=== PATIENT | female | born 1965 | race Caucasian/White ===

== ENCOUNTER → 2016-11-27 | Outpatient (CLI) | payer BC ==
[~2016-11-27] MED LIST: MEDR10TA7 PO
[2016-11-27 10:40] LABS: HEMATOCRIT 37.5 % (35.0-46.0); MEAN CELL VOLUME 88.6 FL (80.0-100.0); MEAN CORPUSCULAR HGB CONC 33.9 % (32.0-36.0); PLATELET COUNT 205 TH/MM3 (150-450); RED BLOOD COUNT 4.24 MIL/MM3 (4.00-5.30); RED CELL DISTRIBUTION WIDTH 13.5 % (11.6-17.2); REVIEW FLAG FINAL; WHITE BLOOD COUNT 9.1 TH/MM3 (4.0-11.0)
--- NOTE | 2016-11-27 13:52 | EKG ---
Date Performed: 11/27/2016 Time Performed: 10:20:53 PTAGE: 51 years EKG: Sinus rhythm NON-SPECIFIC ST/T WAVE CHANGES NO PREVIOUS TRACING DOCTOR: Samson Gomez Interpretating Date/Time 11/27/2016 13:51:26
== END ==
LOC: CPRE 09:51
PROVIDERS: ATTEND Obstetrics & Gynecology
DX: Z01.812 Encounter for preprocedural laboratory examination (principal); Z01.810 Encounter for preprocedural cardiovascular examination; N92.0 Excessive and frequent menstruation with regular cycle
CPT/HCPCS: 36415; 84703; 85027; 93005

== ENCOUNTER 2016-12-04 09:28 | Observation (INO) | payer BC ==
[~2016-12-04] VITALS: Ht 165.1 cm; Wt 69.4 kg
[2016-12-04] MEDS ORDERED: CHLORHEXIDINE GLUCONATE 2 % 1 PACK (2 CLOTHS) TOPICAL PRN (10:00)
[2016-12-04] MEDS ORDERED: POVIDONE IODINE 5% (ANTISEPSIS KIT) 4 APPLICATIONS EACH NARE PRN (10:00)
[2016-12-04] MEDS ORDERED: LACTATED RINGER'S 1000 ML IV PRN (10:00)
[2016-12-04] MEDS ORDERED: SODIUM CHLORID 0.9% 500 ML IV PRN (10:00)
[2016-12-04] MEDS ORDERED: METOPROLOL TARTRATE 25 MG TAB PO PRN (10:00)
[2016-12-04] MEDS ORDERED: INSULIN HUMAN REGULAR 1,000 UNITS/10 ML VIAL SQ PRN (10:00)
[2016-12-04] MEDS ORDERED: ONDANSETRON HCL 4 MG/2 ML VIAL IV PUSH SCH (10:00)
[2016-12-04] MEDS ORDERED: MIDAZOLAM HCL 2 MG/2 ML VIAL IV SCH (10:00)
[2016-12-04 10:03] VITALS: BP 128/63; PULSE 86; RESP 20; TEMP 98.2; O2SAT 98
[2016-12-04] MEDS: ceFAZolin 1,000 MG/NS 100 ML IV SCH ×4 (11:12→11:15)
[2016-12-04] MEDS ORDERED: LACTATED RINGER'S 1000 ML INJ 1,000 ML IV ONE (12:00)
[2016-12-04] MEDS ORDERED: NEOSTIGMINE 3 MG/3 ML SYR IV ONE (12:00)
[2016-12-04] MEDS ORDERED: ONDANSETRON HCL 4 MG/2 ML VIAL IV PUSH ONE (12:00)
[2016-12-04] MEDS ORDERED: ePHEDrine/NS 25 MG/5 ML SYR IV ONE (12:00)
[2016-12-04] MEDS ORDERED: KETOROLAC TROMETHAMINE 30 MG/ML (IVP) VIAL IV PUSH ONE (12:00)
[2016-12-04] MEDS ORDERED: PHENYLEPH/NS 1000 MCG/10 ML SYR IV ONE (12:00)
[2016-12-04] MEDS ORDERED: PROPOFOL 200 MG/20 ML AMP IV ONE (12:00)
[2016-12-04] MEDS ORDERED: MIDAZOLAM HCL 2 MG/2 ML VIAL ONE (13:09)
[2016-12-04] MEDS ORDERED: ACETAMINOPHEN 1000 MG/100 ML VIAL IV ONE (13:09)
[2016-12-04] MEDS ORDERED: *MEPERIDINE 25 MG INJ VIAL PERIprocedural Use ONLY ONE (14:56)
[2016-12-04] MEDS ORDERED: *morphine SULFATE 8 MG/ML PERIprocedure ONLY ONE ×2 (14:56→15:28)
[2016-12-04] MEDS ORDERED: MORPHINE SULFATE 30 MG/30 ML PCA ONE (15:19)
[2016-12-04] MEDS ORDERED: fentaNYL CITRATE 250 MCG/5 ML AMP ONE (15:24)
[2016-12-04] MEDS ORDERED: MORPHINE SULFATE 30 MG/30 ML PCA IV SCH (15:45)
[2016-12-04] MEDS ORDERED: diphenhydrAMINE HCL 50 MG/ML VIAL IV PUSH PRN (15:45)
[2016-12-04] MEDS ORDERED: NALOXONE HCL 0.4 MG/ML AMP IV PRN (15:45)
[2016-12-04] MEDS ORDERED: DEXT 5%-NACL 0.45% 1000 ML INJ 1,000 ML IV SCH (16:30)
[2016-12-04] MEDS ORDERED: oxyCODONE/ACETAMINOPHEN 5 MG/325 MG TAB PO PRN (16:30)
[2016-12-04] MEDS ORDERED: ONDANSETRON HCL 4 MG/2 ML VIAL IV PUSH PRN (16:30)
[2016-12-04] MEDS ORDERED: DO NOT ADM ANY ANTICOAGULANT DRUGS PRN (16:30)
[2016-12-04 17:00] VITALS: BP 99/69; PULSE 77; RESP 16; TEMP 98.1; O2SAT 97
[2016-12-04] MEDS: PCA - TOTAL MG MORPHINE DELIVERED PER SHIFT SCH (18:20)
[2016-12-04 21:30] VITALS: BP 97/68; PULSE 78; RESP 16; TEMP 98.3; O2SAT 97
[2016-12-05] VITALS: BP 102/54; PULSE 76; RESP 17
[2016-12-05 04:25] VITALS: BP 97/63; PULSE 69; RESP 16; TEMP 98.5; O2SAT 96
[2016-12-05] MEDS: PCA - TOTAL MG MORPHINE DELIVERED PER SHIFT SCH (06:00)
[2016-12-05 08:12] VITALS: BP 92/60; PULSE 76; RESP 16; TEMP 98.3
[2016-12-05 11:32] LABS: HEMATOCRIT 23.3 % (35.0-46.0); REVIEW FLAG FINAL
--- NOTE | 2017-01-09 12:42 | MP ---
cc: YEYO WINKLER DATE OF SURGERY 12/04/2016 PREOPERATIVE DIAGNOSIS Menorrhagia, leiomyomata uteri. POSTOPERATIVE DIAGNOSIS Menorrhagia, leiomyomata uteri. PROCEDURE Laparoscopic-assisted supracervical hysterectomy SURGEON Yeyo Winkler MD ANESTHESIA General ESTIMATED BLOOD LOSS 150 cc COMPLICATIONS None FINDINGS The patient had a uterus that was approximately 12 weeks size with multiple intramural leiomyomata uteri. The anterior and posterior cul-de-sacs were free of disease. The ovaries and fallopian tubes were unremarkable. The upper abdominal organs were normal as far as could be visualized. DESCRIPTION OF PROCEDURE The patient brought into the operating room and following general anesthesia was placed in dorsolithotomy position. Her vagina, abdomen and perineum were prepped and draped. A HUMI catheter was placed in the uterus and a Montes catheter into the bladder. A 1 cm subumbilical skin incision was made. The Veress needle was inserted and 3 liters of CO2 was infused into the abdomen. The Veress needle was then removed and the laparoscope was placed without difficulty. A second and third puncture site were created under direct visualization. The findings were as noted above. The Harmonic scalpel was used to clamp, cut and seal the upper broad ligaments and round ligaments. The bladder peritoneum was incised and the bladder was sharply dissected off of the anterior cervix. The uterine vessels were skeletonized and then clamped, cut and sealed with the harmonic scalpel. The cervix was then transected across the upper portion with the LineLoop. The stump of the cervix and the endocervical canal were cauterized for hemostasis. The uterus was then morcellated and removed. The pelvis was copiously irrigated and good hemostasis was noted at all sites. The fallopian tubes were removed by sealing the mesosalpinx with the harmonic scalpel and taking the tubes out intact. With no bleeding or other pathology noted, all instruments were then removed and the CO2 gas was allowed to escape. The incisions were then closed with a subcuticular #4-0 Vicryl stitch. The patient was then taken to the Recovery Room in good condition with all counts correct and clear urine draining in her Montes catheter. MD CALVIN Monaco/DAGOBERTO /12:05 PM /12:25 PM
== END 2016-12-05 12:15 | disposition home or self-care (01) ==
LOC: HSDC 09:28 → HSDI 18:05 → H1EA 18:34
PROVIDERS: ADMIT Obstetrics & Gynecology; ATTEND Obstetrics & Gynecology
DX: N92.0 Excessive and frequent menstruation with regular cycle (principal); D25.9 Leiomyoma of uterus, unspecified
CPT/HCPCS: 00840; 58542; 85014; 85018; 86850; 86900; 86901; 88307; G0378; J0131; J0690; J1885; J2175; J2250; J2270; J2370; J2405; J2710; J3010; J7120